=== PATIENT | male | born 1995 | race American Indian/Alaskan Native ===

== ENCOUNTER 2017-04-18 12:31 | Outpatient (CLI) | payer OTHER ==
[2017-04-18 12:57] LABS: Basophils % (Auto) 0.7 % (0.0-1.8); Eosinophils % (Auto) 3.5 % (0.0-4.3); Hematocrit 30.1 % (35.5-45.6); Hemoglobin 10.2 gm/dl (11.8-15.2); Mean Corpuscular HGB Conc 34 % (32-34); Mean Corpuscular Hemoglobin 31 pg (28-32); Mean Corpuscular Volume 91 fl (84-94); Platelet Count 213 K/mm3 (140-440); White Blood Count 15.5 K/mm3 (4.5-11.0)
[2017-04-18 13:29] LABS: Blood Urea Nitrogen 6 mg/dL (9-20); Calcium 9.2 mg/dL (8.4-10.2); Carbon Dioxide 21 mmol/L (22-30); Cholesterol 83 mg/dL (50-199); Glucose 65 mg/dL (75-100); HDL Cholesterol 39 mg/dL (40-59); LDL Cholesterol,Direct 33 mg/dL (50-130); Triglycerides 57 mg/dL (2-149)
[2017-04-18 13:30] LABS: Anion Gap 23 mmol/L; Chloride 103.9 mmol/L (98-107); Potassium 4.5 mmol/L (3.6-5.0); Sodium 143 mmol/L (137-145)
== END 2017-04-18 12:32 | disposition home or self-care (01) ==
LOC: LAB 12:31
PROVIDERS: ATTEND Student in an Organized Health Care Education/Training Program
DX: D57.00 Hb-SS disease with crisis, unspecified (principal)
CPT/HCPCS: 36415; 80048; 80061; 80074; 85025